=== PATIENT | male | born 1990 | race Caucasian/White ===

== ENCOUNTER 2021-02-21 17:46 | Emergency (ER) | payer BC ==
[~2021-02-21] VITALS: Ht 175.3 cm; Wt 102.1 kg
[2021-02-21 17:55] VITALS: BP_SYST 120
--- NOTE | 2021-02-21 17:55 | NUR ---
Patient triaged and placed in bed 5. VSS and patient appears in no acute distress at this time. MD notified of need for MSE.
--- NOTE | 2021-02-21 17:56 | NUR ---
Pt came into ER with complaint of N/V/D abdominal pain 11/30 X1Day. Pt [id number] resting in [facility]. Pt reports he is unable to keep food or fluid down. Pt attached to monitor VSS.
--- NOTE | 2021-02-21 18:04 | NUR ---
ER at bedside examining patient.
--- NOTE | 2021-02-21 18:10 | NUR ---
Lab at bedside.
--- NOTE | 2021-02-21 18:12 | NUR ---
Urine collected and sent to lab.
[2021-02-21] MEDS ORDERED: ONDANSETRON 4 MG ODT TAB PO ONE (18:15)
[2021-02-21 18:20] LABS: BILIRUBIN,URINE NEGATIVE (NEGATIVE); BLOOD, URINE 2+ (NEGATIVE); CLARITY/URINE CLEAR (CLEAR); COLOR,URINE YELLOW (YELLOW); GLUCOSE,URINE NEGATIVE (NEGATIVE); KETONES,URINE NEGATIVE (NEGATIVE); LEUKOCYTE ESTERASE ,URINE NEGATIVE (NEGATIVE); NITRITE, URINE NEGATIVE (NEGATIVE); PH,URINE 5.5 (5.0-8.0); PROTEIN URINE NEGATIVE (NEGATIVE); UROBILINOGEN,URINE 0.2 (0.2-1.0)
[2021-02-21 18:35] LABS: BACTERIA,URINE FEW /HPF (None Seen); MUCUS,URINE 1+ /LPF (None Seen); RBC,URINE 0-3 /HPF (0-3); WBC,URINE NONE SEEN /HPF (0-3)
[2021-02-21 18:44] LABS: CALCIUM 8.6 mg/dL (8.4-11.0); CREATININE 1.25 mg/dL (0.55-1.30); POTASSIUM 3.8 mmol/L (3.5-5.1)
[2021-02-21 18:47] LABS: HEMATOCRIT 45.1 % (36-54); HEMOGLOBIN 15.3 g/dL (14.0-18.0); MEAN CORPUSCULAR HEMOGLOBIN 29 pg (27-31); MEAN CORPUSCULAR HGB CONC 34 % (32-36); MEAN CORPUSCULAR VOLUME 86 fL (79.0-98.0); PLATELET COUNT (AUTO) 281 K/uL (130-430); RED BLOOD CELL COUNT(AUTO) 5.24 MIL/uL (4.2-6.2); WHITE BLOOD COUNT (AUTO) 12.8 K/uL (4.8-10.8)
[2021-02-21 18:48] LABS: PROTHROMBIN TIME 10.4 SECS (9.5-12.5)
[2021-02-21 18:49] LABS: C-REACTIVE PROTEIN QUANT 2.1 mg/dL (0-0.5)
[2021-02-21 18:50] LABS: TOTAL BILIRUBIN 1.1 mg/dL (0.0-1.0)
--- NOTE | 2021-02-21 19:05 | NUR ---
Care endorsed to Luis HAMMOND
[2021-02-21 19:38] LABS: BAND % (MANUAL) 8 % (0-6); BASOPHILS % (MANUAL) 0 % (0-2); EOSINOPHILS % (MANUAL) 0 % (0-7); LYMPHOCYTES % (MANUAL) 2 % (20-46); MONOCYTES % (MANUAL) 5 % (0-11)
[2021-02-21 19:41] VITALS: BP_SYST 120
--- NOTE | 2021-02-21 19:41 | NUR ---
Patient given written and verbal discharge instructions and verbalizes understanding. ER MD discussed with patient the results and treatment provided. Patient in stable condition. ID arm band removed. Rx of Zofran and Motrin given. Patient educated on pain management and to follow up with PMD. Pain Scale 0/10. Opportunity for questions provided and answered. Medication side effect fact sheet provided.
== END 2021-02-21 19:41 | disposition home or self-care (01) ==
LOC: SED 17:46
DX: A05.9 Bacterial foodborne intoxication, unspecified (principal)
CPT/HCPCS: 36415; 80053; 81000; 82150; 83605; 83690; 85007; 85027; 85610; 85730; 86140; 99283; Q0162